=== PATIENT | male | born 1990 | race Caucasian/White ===

== ENCOUNTER 2024-05-21 20:11 | Emergency (ER) | payer OTHER ==
[2024-05-21 20:17] VITALS: BP 150/94; PULSE 111; RESP 20; TEMP 98; BMI 41.1
[2024-05-21] MEDS ORDERED: hydrOXYzine PAMOATE 25 MG CAPSULE (FP) PO ONE (21:27)
[2024-05-21] MEDS: hydrOXYzine PAMOATE 25 MG CAPSULE (FP) PO ONE (21:32)
[2024-05-21] MEDS ORDERED: MAG HYDROX/AL HYDROX/SIMETH 30 ML UNIT-DOSE CUP ONE (22:01)
[2024-05-21] MEDS: MAG HYDROX/AL HYDROX/SIMETH 30 ML UNIT-DOSE CUP PO ONE (22:04)
== END 2024-05-21 22:35 | disposition home or self-care (01) ==
LOC: JERFT 20:11 → JER 20:11
DX: F41.9 Anxiety disorder, unspecified (principal); R23.2 Flushing; Y93.66 Activity, soccer
CPT/HCPCS: 99283-25

== ENCOUNTER 2024-06-02 12:11 | Emergency (ER) | payer OTHER ==
[2024-06-02 12:22] VITALS: BP 147/95; RESP 18; TEMP 98.1; BMI 38.7
[2024-06-02 12:33] VITALS: PULSE 110
[2024-06-02 13:35] LABS: BASO % 0.3 % (0-2.0); EOS % 0.2 % (0-4.5); HEMATOCRIT 48.1 % (35.4-49); HEMOGLOBIN 16.3 GM/dL (11.7-16.9); LYMPH % 9.9 % (8-40); MCH 29.4 pg (25.7-33.7); MCHC 33.9 g/dl (32.0-35.9); MEAN CELL VOLUME 86.9 fl (80-96); MEAN PLT VOLUME 8.8 fl (7.5-11.1); MONO % 6.5 % (3.8-10.2); NEUT % 83.1 % (42.8-82.8); PLATELET COUNT 258 10^3/uL (134-434); RBC 5.54 M/mm3 (4.00-5.60); RDW 13.6 % (11.9-15.9); WHITE BLOOD COUNT 7.9 K/mm3 (4.0-10.0)
[2024-06-02 13:47] LABS: POTASSIUM 4.2 mmol/L (3.5-5.1)
[2024-06-02 13:48] LABS: CALCIUM 9.5 mg/dL (8.5-10.1)
[2024-06-02 13:49] LABS: ALBUMIN 4.6 g/dl (3.4-5.0)
[2024-06-02 13:53] LABS: BILIRUBIN,TOTAL 1.1 mg/dL (0.2-1)
[2024-06-02 13:54] LABS: TOT PROT 8.8 g/dl (6.4-8.2)
[2024-06-02 14:02] LABS: CREATININE 1.2 mg/dL (0.55-1.3)
== END 2024-06-02 15:45 | disposition home or self-care (01) ==
LOC: JER 12:11
DX: F41.9 Anxiety disorder, unspecified (principal)
CPT/HCPCS: 36415; 80053; 85025; 93005; 93010; 99284-25

== ENCOUNTER 2024-11-11 06:10 | Emergency (ER) | payer OTHER ==
[2024-11-11 06:17] VITALS: BP 135/81; PULSE 83; RESP 18; TEMP 98.4; BMI 39.4
[2024-11-11] MEDS ORDERED: MECLIZINE HCL 25 MG TABLET (FP) ONE (07:56)
[2024-11-11] MEDS ORDERED: ONDANSETRON *ODT* 4 MG TABLET ONE (07:57)
[2024-11-11] MEDS: MECLIZINE HCL 25 MG TABLET (FP) PO ONE (07:58)
[2024-11-11] MEDS: ONDANSETRON *ODT* 4 MG TABLET SL ONE (07:59)
== END 2024-11-11 08:54 | disposition home or self-care (01) ==
LOC: JER 06:10
DX: R42 Dizziness and giddiness (principal); R11.0 Nausea; F41.9 Anxiety disorder, unspecified
CPT/HCPCS: 99283-25; Q0162